=== PATIENT | male | born 1940 | race Caucasian/White ===

== ENCOUNTER → 2016-11-29 | Outpatient (CLI) | payer OTHER, MEDICARE ==
[~2016-11-29] MED LIST: ASPIRIN EC81 M1 PO; LIPITOR10 MG PO; LISINOPRIL10 MG PO; VITAMIN D32000 UNI1 PO; ZYRTEC10 M2 PO
== END ==
LOC: CAT 10:05
DX: R22.1 Localized swelling, mass and lump, neck (principal)

== ENCOUNTER → 2016-12-10 | Outpatient (CLI) | payer OTHER, MEDICARE ==
--- NOTE | ~2016-12-10 | S ---
[facility] [address] [place] [address] SURGICAL PATH RPT PROCEDURE Name: FREDIS ISRAEL Room #: REG Arben Lorrie#: [id number] Admission: 12/10/16 Date of : 44 Discharge: Report #: [id number] Path Case #: [id number] PATHOLOGY REPORT COLLECTION DATE: 12/10/2016 RECEIVED DATE: 12/10/2016 SUBMITTING PHYS: Dr. 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 (SEE COMMENT) SYNOPTIC CANCER STAGING REPORT SPECIMEN Specimen: Lymph node(s) Procedure: Biopsy Tumor Site: Lymph node(s) Specify Site(s): Rt neck TUMOR Histologic Type (Based on the 2008 WHO Classification): Mature B-Cell Neoplasms Chronic lymphocytic leukemia / small lymphocytic lymphoma SPECIAL STUDIES Immunophenotyping (Flow Cytometry and / or Immunohistochemistry): Performed, see separate report: [facility] [id number] COMMENT: Sections show fragments of lymph node with effaced rony architecture. There is a monotonous population of small round mature appearing lymphocytes with condensed chromatin and scant cytoplasm. No significant large cell component is identified. Neither a high mitotic rate nor abundant single cell necrosis is seen. Geographic necrosis is not identified. To confirm the flow cytometry findings and to identify cells in a tissue architectural context, properly controlled immunohistochemical stains are performed. (Block A1) PAX-5: diffuse nuclear reactivity in the neoplastic B cells [address] [address] SURGICAL PATH RPT PROCEDURE Name: FREDIS ISRAEL Room #: REG [facility] Bj.#: [id number] Admission: 12/10/16 Date of : 44 Discharge: Report #: [id number] Path Case #: [id number] CD3: highlights admixed T cells Cyclin D-1: lacks diffuse nuclear staining Ki-67: stains a proliferative index of approximately 10% Flow cytometric immunophenotypic analysis was performed at [facility]. 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 Of the remaining 21% lymphocytes, there are 0.4% polyclonal B cells and T cells have a CD4/CD8 ratio of 2.3. 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 Please see separate flow cytometry report from [facility] ([id number]). Overall, the diagnosis is lymph node with involvement by chronic lymphocytic leukemia / small lymphocytic lymphoma. The H and E stained slides are co-reviewed with Dr. Sunil Gibson. Clinical and radiographic correlation is recommended. (CLW:mgr; 12/12/2016) PATHOLOGIST: Sushila Mcgowan M.D. REPORT ELECTRONICALLY SIGNED BY: Sushila Mcgowan M.D. DATE/TIME: 12/12/2016 21:43 * * * * * * * * * * * * GROSS PATHOLOGY: Received in formalin labeled "Fredis Israel, right neck mass," are five distinct needle cores of dexter soft tissue ranging from 0.2 to 1.2 cm in length, which are submitted entirely in cassette A1. Also received in RPMI, labeled "Fredis Dongter, right neck mass," are four distinct needle cores of dexter soft tissue ranging from 0.3 to 1.1 cm in length. The specimen is forwarded in its entirety for flow cytometry studies. [place] [place] CLINICAL HISTORY: Right neck masses, leukemia history INITIAL CPT CODE(S): A; 45605, 54799, 07102, 45707, 32222, 83732 Professional services performed by [facility] at [facility] [address], [place] [address] Technical services performed by [facility] at [address] [place] [address] [address] [place] [address] SURGICAL PATH RPT PROCEDURE Name: FREDIS ISRAEL Room #: REG Arben [facility].#: [id number] Admission: 12/10/16 Date of : 44 Discharge: Report #: [id number] Path Case #: [id number] [place] [id number]. [facility] [address] [place] [address] PHONE: [phone] DIRECTOR: Yaw Frey M.D. * * * END OF REPORT * * *
== END | disposition home or self-care (01) ==
LOC: ULTRA 10:47
DX: C91.10 Chronic lymphocytic leukemia of B-cell type not having achieved remission (principal); Z79.82 Long term (current) use of aspirin; Z79.899 Other long term (current) drug therapy